=== PATIENT | male | born 1950 | race Caucasian/White ===

== ENCOUNTER 2017-04-30 05:45 | Inpatient (IN) | payer MEDICARE, BC ==
[2017-04-30] MEDS ORDERED: ONDANSETRON HCL 4 MG/2 ML SOL ONE (05:58)
[2017-04-30] MEDS ORDERED: ONDANSETRON HCL 4 MG/2 ML SOL IV ONE (06:02)
[2017-04-30] MEDS ORDERED: HYDROMORPHONE HCL 2 MG/ML SOL IV ONE (06:02)
[2017-04-30] MEDS ORDERED: HYDROMORPHONE HCL 2 MG/ML SOL ONE (06:03)
[2017-04-30 06:52] LABS: BASOPHILS % (AUTO) 1 % (0-3); EOSINOPHILS % (AUTO) 0 % (0-9); HEMATOCRIT 50 % (39-53); MEAN CORPUSCULAR HGB CONC 36.5 gm/dl (32.0-36.0); MEAN CORPUSCULAR VOLUME 92 fL (80-100); MONOCYTES % (AUTO) 3.2 % (0-12); NEUTROPHILS % (AUTO) 87.1 % (37-80)
[2017-04-30 06:58] LABS: ALBUMIN 4.1 gm/dl (3.4-5.0); ALT 26 IU/L (14-63); CALCIUM 9.3 mg/dl (8.5-10.1); GLOM FILT RATE 59 mL/min (>60); POTASSIUM 5.1 mMol/L (3.5-5.1); SODIUM 137 mMol/L (136-145)
[2017-04-30] MEDS ORDERED: HYDROMORPHONE HCL 2 MG/ML SOL IV PRN (10:11)
[2017-04-30] MEDS ORDERED: ONDANSETRON HCL 4 MG/2 ML SOL IV PRN (10:11)
[2017-04-30] MEDS ORDERED: LORAZEPAM 2 MG/ML SOL IV PRN (10:15)
[2017-04-30 10:25] LABS: APPEARANCE,URINE Clear; BILIRUBIN,URINE NEGATIVE (NEGATIVE); COLOR,URINE Yellow; GLUCOSE, URINE (UA) NEGATIVE (NEGATIVE); KETONES,URINE TRACE (NEGATIVE); LEUKOCYTE ESTERASE ,URINE NEGATIVE (NEGATIVE); NITRATE,URINE NEGATIVE (NEGATIVE); OCCULT BLOOD,URINE NEGATIVE (NEG-TRACE)
[2017-04-30 10:56] LABS: RBC,URINE NEGATIVE (0-3AV/HPF); WBC,URINE NEGATIVE (0-5AV/HPF)
[2017-04-30] MEDS: ENOXAPARIN 40 MG SOL SC SCH (11:26)
[2017-04-30] MEDS: DEXTROSE/SALINE 0.45/KCL 20MEQ 1,000 ML/1,000 ML SOL IV SCH ×2 (11:26→19:46)
[2017-04-30] MEDS: ESOMEPRAZOLE SODIUM 40 MG VIAL IV SCH (11:27)
[2017-05-01] MEDS: DEXTROSE/SALINE 0.45/KCL 20MEQ 1,000 ML/1,000 ML SOL IV SCH (01:41)
[2017-05-01 07:28] LABS: BASOPHILS % (AUTO) 1 % (0-3); EOSINOPHILS % (AUTO) 3 % (0-9); HEMATOCRIT 48 % (39-53); MEAN CORPUSCULAR HGB CONC 34.7 gm/dl (32.0-36.0); MEAN CORPUSCULAR VOLUME 92 fL (80-100); MONOCYTES % (AUTO) 9.9 % (0-12); NEUTROPHILS % (AUTO) 56.1 % (37-80)
[2017-05-01 07:37] LABS: CALCIUM 8.4 mg/dl (8.5-10.1); POTASSIUM 4.1 mMol/L (3.5-5.1)
[2017-05-01] MEDS: ESOMEPRAZOLE SODIUM 40 MG VIAL IV SCH (08:40)
[2017-05-01] MEDS: ENOXAPARIN 40 MG SOL SC SCH (08:40)
[2017-05-01 08:44] VITALS: BP 138/83; PULSE 61; RESP 20; TEMP 97.4; O2SAT 96
[2017-05-01] MEDS ORDERED: INFLUENZA HIGH DOSE VACCINE 0.5 ML SUS IM ONE (08:46)
[2017-05-01] MEDS ORDERED: PNEUMOC 13-VAL CONJ-DIP CRM/PF 0.5 ML SYRINGE IM ONE (08:48)
== END 2017-05-01 09:15 | disposition home or self-care (01) | DRG 390 ==
LOC: ED 05:45 → ACUTE CARE 09:47 → UNDOADMIN 09:47 → ACUTE CARE 10:00
PROVIDERS: ADMIT Family Medicine; ATTEND Family Medicine
DX: K56.609 Unspecified intestinal obstruction, unspecified as to partial versus complete obstruction (principal); L29.9 Pruritus, unspecified; Z85.72 Personal history of non-Hodgkin lymphomas; R61 Generalized hyperhidrosis; Z85.71 Personal history of Hodgkin lymphoma
CPT/HCPCS: 36415; 71010; 74177; 80048; 80053; 81001; 84484; 85025; 90662; 90670; 93005; 96374; 96375; 99222; 99285; J1170; J1650; J2060; J2405; Q9967; G0008

== ENCOUNTER 2017-12-01 07:10 | Emergency (ER) | payer MEDICARE, BC ==
[2017-12-01] MEDS ORDERED: PREDNISONE 20 MG TAB PO ONE (07:36)
[2017-12-01 07:38] VITALS: PULSE 56; RESP 20; TEMP 96.7
[2017-12-01] MEDS ORDERED: PREDNISONE 20 MG TAB ONE (07:41)
[2017-12-01 08:00] VITALS: O2SAT 99
[2017-12-01 08:14] VITALS: BP 162/93
== END 2017-12-01 08:13 | disposition home or self-care (01) | DRG 607 ==
LOC: ED 07:10
DX: L29.9 Pruritus, unspecified (principal)
CPT/HCPCS: 99282; A9270-GY

== ENCOUNTER 2018-05-12 15:39 | Emergency (ER) | payer MEDICARE, BC ==
[2018-05-12] MEDS ORDERED: ONDANSETRON HCL 4 MG/2 ML SOL IV ONE (15:51)
[2018-05-12] MEDS ORDERED: ONDANSETRON HCL 4 MG/2 ML SOL ONE (15:55)
[2018-05-12] MEDS ORDERED: SODIUM CHLORIDE 0.9% 1000ML 1,000 ML IV SCH (16:00)
[2018-05-12 16:06] LABS: BASOPHILS % (AUTO) 1 % (0-3); EOSINOPHILS % (AUTO) 2 % (0-9); HEMATOCRIT 51 % (39-53); HEMOGLOBIN 16.9 gm/dl (13.5-17.7); MEAN CORPUSCULAR HEMOGLOBIN 31.1 pg (27.0-32.0); MEAN CORPUSCULAR HGB CONC 33.1 gm/dl (32.0-36.0); MEAN CORPUSCULAR VOLUME 94 fL (80-100); NEUTROPHILS % (AUTO) 58.9 % (37-80)
[2018-05-12] MEDS ORDERED: LABETALOL HYDROCHLORIDE 5 MG/ML SOL IV ONE ×2 (16:12→16:13)
[2018-05-12] MEDS ORDERED: ALTEPLASE, RECOMBINANT 50 MG PDS IV ONE ×3 (16:18→16:33)
[2018-05-12 16:20] LABS: ALBUMIN 3.5 gm/dl (3.4-5.0); ALKALINE PHOSPHATASE 74 IU/L (46-116); ALT 30 IU/L (14-63); AST 15 IU/L (15-37); BILIRUBIN,TOTAL 0.4 mg/dl (0.2-1.0); BLOOD UREA NITROGEN 18 mg/dl (7-18); CALCIUM 8.7 mg/dl (8.5-10.1); CARBON DIOXIDE 27.5 mEq/L (21-32); CHLORIDE 104 mMol/L (98-107); GLUCOSE 145 mg/dl (74-106); POTASSIUM 3.5 mMol/L (3.5-5.1); SODIUM 140 mMol/L (136-145); TOTAL PROTEIN 6.8 gm/dl (6.4-8.2); TROP I < 0.017 ng/ml (0.000-0.056)
[2018-05-12 17:07] LABS: INR 1.02 (0.86-1.12)
[2018-05-12 17:08] VITALS: TEMP 95.8
[2018-05-12 17:20] VITALS: PULSE 64
[2018-05-12 17:24] VITALS: BP 173/98; RESP 21; O2SAT 100
== END 2018-05-12 16:47 | disposition short-term general hospital (02) | DRG 66 ==
LOC: ED 15:39
DX: I63.9 Cerebral infarction, unspecified (principal); R29.703 NIHSS score 3; R53.1 Weakness; R53.81 Other malaise; H53.8 Other visual disturbances; R11.2 Nausea with vomiting, unspecified; R40.2362 Coma scale, best motor response, obeys commands, at arrival to emergency department; R40.2142 Coma scale, eyes open, spontaneous, at arrival to emergency department; R40.2252 Coma scale, best verbal response, oriented, at arrival to emergency department
CPT/HCPCS: 36415; 70450; 80053; 84484; 85025; 85610; 93005; 96365; 96374; 96375; 99291; J2405; J2997; J3490

== ENCOUNTER 2018-09-27 19:01 | Emergency (ER) | payer MEDICARE, BC ==
[2018-09-27] MEDS ORDERED: SODIUM CHLORIDE 0.9% FLUSH 10 ML SOL IV PRN (19:14)
[2018-09-27] MEDS ORDERED: SODIUM CHLORIDE 0.9% 1000ML 1,000 ML IV ONE ×2 (19:24→19:43)
[2018-09-27 19:32] LABS: BASOPHILS % (AUTO) 1 % (0-3); EOSINOPHILS % (AUTO) 1 % (0-9); HEMATOCRIT 48 % (39-53); HEMOGLOBIN 16.4 gm/dl (13.5-17.7); LYMPHOCYTES % (AUTO) 23.4 % (10-50); MEAN CORPUSCULAR HEMOGLOBIN 31.9 pg (27.0-32.0); MEAN CORPUSCULAR VOLUME 94 fL (80-100); MONOCYTES % (AUTO) 10.5 % (0-12); NEUTROPHILS % (AUTO) 63.9 % (37-80)
[2018-09-27 19:44] LABS: INR 1.02 (0.86-1.12)
[2018-09-27 19:49] LABS: ALBUMIN 3.8 gm/dl (3.4-5.0); ALKALINE PHOSPHATASE 68 IU/L (46-116); ALT 37 IU/L (14-63); AST 17 IU/L (15-37); BILIRUBIN,TOTAL 0.5 mg/dl (0.2-1.0); BLOOD UREA NITROGEN 16 mg/dl (7-18); CALCIUM 8.6 mg/dl (8.5-10.1); CARBON DIOXIDE 28.8 mEq/L (21-32); CHLORIDE 104 mMol/L (98-107); CREATININE 1.19 mg/dl (0.80-1.30); GLUCOSE 93 mg/dl (74-106); SODIUM 141 mMol/L (136-145); TOTAL PROTEIN 6.9 gm/dl (6.4-8.2); TROP I < 0.017 ng/ml (0.000-0.056)
[2018-09-27 20:10] LABS: APPEARANCE,URINE Clear; BILIRUBIN,URINE NEGATIVE (NEGATIVE); COLOR,URINE Yellow; GLUCOSE, URINE (UA) NEGATIVE (NEGATIVE); KETONES,URINE NEGATIVE (NEGATIVE); LEUKOCYTE ESTERASE ,URINE NEGATIVE (NEGATIVE); NITRATE,URINE NEGATIVE (NEGATIVE); OCCULT BLOOD,URINE NEGATIVE (NEG-TRACE); PH,URINE 5.5; UROBILINOGEN,URINE 0.2 (0.2-1.0 EU)
[2018-09-27 20:19] LABS: BACTERIA TRACE (< 1+); CRYSTALS NEGATIVE (0-3 AVE/HPF); EPITHELIAL CELLS NEGATIVE (SQUAMOUS); RBC,URINE 0-1 (0-3AV/HPF); WBC,URINE 0-1 (0-5AV/HPF)
[2018-09-27 23:32] VITALS: RESP 20
[2018-09-27 23:36] VITALS: BP 145/92; PULSE 60; TEMP 98.1; O2SAT 97
== END 2018-09-27 21:00 | disposition home or self-care (01) | DRG 69 ==
LOC: ED 19:01 → SUPCPDRO 19:01 → ED 21:00
DX: G45.9 Transient cerebral ischemic attack, unspecified (principal); R55 Syncope and collapse; R42 Dizziness and giddiness; H53.8 Other visual disturbances; H53.2 Diplopia; R40.2362 Coma scale, best motor response, obeys commands, at arrival to emergency department; R40.2142 Coma scale, eyes open, spontaneous, at arrival to emergency department; R40.2252 Coma scale, best verbal response, oriented, at arrival to emergency department
CPT/HCPCS: 36415; 70450; 71045; 80053; 81001; 82962; 84484; 85025; 85378; 85610; 85730; 93005; 96365; 99291

== ENCOUNTER 2018-11-03 06:31 | Emergency (ER) | payer MEDICARE, BC ==
[2018-11-03 06:41] VITALS: TEMP 96; O2SAT 96
[2018-11-03 07:12] LABS: BASOPHILS % (AUTO) 1 % (0-3); EOSINOPHILS % (AUTO) 3 % (0-9); HEMATOCRIT 51 % (39-53); HEMOGLOBIN 16.8 gm/dl (13.5-17.7); LYMPHOCYTES % (AUTO) 31.8 % (10-50); MEAN CORPUSCULAR HEMOGLOBIN 31.7 pg (27.0-32.0); MEAN CORPUSCULAR HGB CONC 33.3 gm/dl (32.0-36.0); MEAN CORPUSCULAR VOLUME 95 fL (80-100); MONOCYTES % (AUTO) 10.2 % (0-12); NEUTROPHILS % (AUTO) 53.5 % (37-80)
[2018-11-03 07:21] LABS: ALBUMIN 3.7 gm/dl (3.4-5.0); BILIRUBIN,TOTAL 0.5 mg/dl (0.2-1.0); CALCIUM 8.4 mg/dl (8.5-10.1); CARBON DIOXIDE 26.2 mEq/L (21-32); CREATININE 1.04 mg/dl (0.80-1.30); POTASSIUM 4.6 mMol/L (3.5-5.1); TOTAL PROTEIN 6.8 gm/dl (6.4-8.2)
[2018-11-03 07:43] LABS: INR 0.99 (0.86-1.12)
[2018-11-03 07:54] VITALS: BP 130/76; PULSE 62; RESP 18
== END 2018-11-03 08:10 | disposition home or self-care (01) | DRG 151 ==
LOC: ED 06:31
DX: R04.0 Epistaxis (principal)
CPT/HCPCS: 36415; 80053; 85025; 85610; 99282